=== PATIENT | male | born 1935 | race Caucasian/White ===

== ENCOUNTER 2016-08-27 17:49 | Emergency (ER) | payer OTHER ==
[~2016-08-27] VITALS: Ht 170.2 cm; Wt 100.1 kg
[~2016-08-27 17:49] MED LIST: ASPIR 8181 M1 PO; BABY ASPIRIN81 M1; LIDOCAINE700 MG TD; LIPITOR40 MG PO; LISINOPRIL5 MG; MEDROL DOSEPAK4 MG PO; MUCINEX600 MG PO; PLAQUENIL200 MG PO; PREDNISONE5 MG PO; PRILOSEC OTC20 MG; TOPROL XL50 MG PO; XANAX0.25 MG PO; ZANTAC150 MG PO; ZYRTEC10 M3 PO
[2016-08-27 19:40] VITALS: BP 126/81
== END 2016-08-27 19:40 | disposition home or self-care (01) ==
LOC: EME 17:49
DX: S80.12XA Contusion of left lower leg, initial encounter (principal); W19.XXXA Unspecified fall, initial encounter; E78.5 Hyperlipidemia, unspecified; Z98.61 Coronary angioplasty status
CPT/HCPCS: 73502; 73552; 73564; 99281; 99284

== ENCOUNTER 2016-12-14 09:57 | Emergency (ER) | payer OTHER ==
[~2016-12-14] VITALS: Ht 170.2 cm; Wt 98.5 kg
[2016-12-14] MEDS ORDERED: PEPCID20 MG PO (11:38)
[2016-12-14] MEDS ORDERED: PREDNISONE20 MG PO (11:38)
[2016-12-14 11:57] VITALS: BP 142/73
== END 2016-12-14 11:58 | disposition home or self-care (01) ==
LOC: EME 09:57
DX: L50.9 Urticaria, unspecified (principal); E78.5 Hyperlipidemia, unspecified; I10 Essential (primary) hypertension; M32.9 Systemic lupus erythematosus, unspecified; Z95.5 Presence of coronary angioplasty implant and graft
CPT/HCPCS: 99281; 99283

== ENCOUNTER 2017-10-10 11:17 | Emergency (ER) | payer OTHER ==
[~2017-10-10] VITALS: Ht 170.2 cm; Wt 101.2 kg
[~2017-10-10 11:17] MED LIST changes: +PEPCID20 MG PO; +PREDNISONE20 MG PO
[2017-10-10] MEDS ORDERED: MOTRIN800 MG PO (13:28)
[2017-10-10 14:12] VITALS: BP 167/80
== END 2017-10-10 14:15 | disposition home or self-care (01) ==
LOC: EME 11:17
DX: S59.901A Unspecified injury of right elbow, initial encounter (principal); M25.421 Effusion, right elbow; W01.0XXA Fall on same level from slipping, tripping and stumbling without subsequent striking against object, initial encounter; Y93.89 Activity, other specified; M32.9 Systemic lupus erythematosus, unspecified; I10 Essential (primary) hypertension; E78.5 Hyperlipidemia, unspecified; Z95.5 Presence of coronary angioplasty implant and graft; Z88.8 Allergy status to other drugs, medicaments and biological substances; Z79.82 Long term (current) use of aspirin
CPT/HCPCS: 73080; 99281; 99284